=== PATIENT | male | born 1950 | race Caucasian/White ===

== ENCOUNTER 2024-03-29 19:43 | Inpatient (IN) ==
[2024-03-29] MEDS: 0.9 % SODIUM CHLORIDE 1,000 ML IV ONE (20:30)
[2024-03-29 21:08] LABS: Basophils # (Auto) 0.03 K/mcL (0.00-0.30); Basophils % (Auto) 0.3 % (0.0-2.0); Hematocrit 43.6 % (40.1-51.0); Hemoglobin 14.6 g/dL (13.7-17.5); Lymphocytes # (Auto) 1.08 K/mcL (1.50-4.80); Lymphocytes % (Auto) 10.6 % (15.5-49.0); Mean Cell Volume 88.3 fL (80.0-100.0); Mean Corpuscular HGB Conc 33.5 g/dL (31.0-36.0); Monocytes # (Auto) 0.96 K/mcL (0.10-0.90); Monocytes % (Auto) 9.4 % (1.0-12.0); Neutrophils % (Auto) 77.4 % (38.0-78.0); Platelet Count 129 K/mcL (140-440); RBC 4.94 M/mcL (4.63-6.08); Red Cell Distribution Width 12.5 % (11.5-14.5); WBC 10.2 K/mcL (4.5-11.0)
[2024-03-29 21:21] LABS: INR 1.1 (0.9-1.1); Prothrombin Time 14.6 sec (11.9-14.5)
[2024-03-29 21:28] LABS: Thyroid Stimulating Hormone 0.81 uIU/mL (0.27-5.01)
[2024-03-29 21:39] LABS: ALT/SGPT 24 U/L (<40); AST/SGOT 30 U/L (<40); Albumin 3.6 gm/dL (3.2-5.2); Albumin/Globulin Ratio 1.1 (1.0-2.3); Alkaline Phosphatase 61 U/L (39-117); Bilirubin,Total 1.3 mg/dL (0.1-1.0); Blood Urea Nitrogen 61 mg/dL (8-23); Calcium 8.3 mg/dL (8.6-10.4); Carbon Dioxide 21 mmol/L (22-30); Chloride 89 mmol/L (96-108); Globulin 3.2 gm/dL (2.2-3.7); Glomerular Filtration Rate 34; Glucose 222 mg/dL (70-105); Potassium 3.8 mmol/L (3.3-5.1); Sodium 126 mmol/L (133-145)
[2024-03-29 22:10] LABS: Free T4 (Free Thyroxine) 1.89 ng/dL (0.93-1.70)
[2024-03-29] MEDS ORDERED: ONDANSETRON 4 MG/2 ML VIAL IV PRN (23:10)
[2024-03-29] MEDS ORDERED: IPRATROPIUM/ALBUTEROL 3 ML AMPUL.NEB NEB PRN (23:10)
[2024-03-29] MEDS ORDERED: DEXTROSE 50% 50 ML VIAL IV PRN (23:10)
[2024-03-29] MEDS ORDERED: LACTULOSE 20 GM/30 ML ORAL.SOL PO PRN (23:10)
[2024-03-29] MEDS ORDERED: DEXTROSE 31 GM ORAL.SUSP PO PRN (23:10)
[2024-03-29] MEDS: 0.9 % SODIUM CHLORIDE 1,000 ML IV SCH (23:30)
[2024-03-29] MEDS: 0.9 % SODIUM CHLORIDE 10 ML SYRINGE IV SCH (23:31)
[2024-03-30 06:25] LABS: Basophils # (Auto) 0.02 K/mcL (0.00-0.30); Basophils % (Auto) 0.2 % (0.0-2.0); Eosinophils # (Auto) 0.28 K/mcL (0.00-0.70); Eosinophils % (Auto) 2.9 % (0.0-7.0); Hematocrit 41.5 % (40.1-51.0); Hemoglobin 13.6 g/dL (13.7-17.5); Lymphocytes # (Auto) 1.72 K/mcL (1.50-4.80); Mean Cell Volume 89.6 fL (80.0-100.0); Mean Corpuscular HGB Conc 32.8 g/dL (31.0-36.0); Mean Platelet Volume 12.3 fL (8.8-12.5); Monocytes # (Auto) 0.84 K/mcL (0.10-0.90); Monocytes % (Auto) 8.8 % (1.0-12.0); Neutrophils % (Auto) 69.8 % (38.0-78.0); Platelet Count 108 K/mcL (140-440); RBC 4.63 M/mcL (4.63-6.08); Red Cell Distribution Width 12.6 % (11.5-14.5); WBC 9.5 K/mcL (4.5-11.0)
[2024-03-30 06:40] LABS: Phosphorous 4.7 mg/dL (2.5-4.5)
[2024-03-30 06:43] LABS: INR 1.1 (0.9-1.1); Prothrombin Time 14.6 sec (11.9-14.5)
[2024-03-30] MEDS: LIDOCAINE 2% URO-JET 10 ML JEL.PF.APP UR ONE (06:45)
[2024-03-30 06:51] LABS: Appearance,Urine Clear (Clear); Bilirubin,Urine Negative (Negative); Color,Urine Yellow; Culture Indicated,Urine No; Glucose,Urine (UA) Negative (Negative); Ketones,Urine Negative (Negative); Leukocyte Esterase,Urine Negative /uL (Negative); Nitrate,Urine Negative (Negative); PH,Urine 5.5 (5.0-9.0); Protein,Urine Negative (Negative); Specific Gravity,Urine <= 1.005 (1.000-1.035); Urine Blood Trace-intact ery/mcL (Negative); Urine RBC 0 /hpf (0-3); Urine Squamous Epithelial Cell 0 /hpf (0-4); Urine WBC 0 /hpf (0-4); Urobilinogen,Urine Normal
[2024-03-30 06:52] LABS: ALT/SGPT 22 U/L (<40); AST/SGOT 23 U/L (<40); Albumin 3.2 gm/dL (3.2-5.2); Albumin/Globulin Ratio 1.2 (1.0-2.3); Alkaline Phosphatase 53 U/L (39-117); Bilirubin,Total 1.1 mg/dL (0.1-1.0); Blood Urea Nitrogen 57 mg/dL (8-23); Carbon Dioxide 24 mmol/L (22-30); Chloride 95 mmol/L (96-108); Globulin 2.7 gm/dL (2.2-3.7); Glomerular Filtration Rate 46; Glucose 168 mg/dL (70-105); Sodium 129 mmol/L (133-145)
[2024-03-30] MEDS: INSULIN LISPRO 1 UNIT/0.01 ML UNIT SQ SCH (07:56)
[2024-03-30] MEDS ORDERED: NITROGLYCERIN 0.4 MG TAB.SUBL SL PRN (08:55)
[2024-03-30] MEDS ORDERED: traZODone HCL 50 MG TABLET PO PRN (08:55)
[2024-03-30] MEDS: MAGNESIUM OXIDE 400 MG TABLET PO SCH (09:13)
[2024-03-30] MEDS: CLOPIDOGREL 75 MG TABLET PO SCH (09:13)
[2024-03-30] MEDS: DOCUSATE SODIUM 100 MG CAPSULE PO SCH (09:13)
[2024-03-30] MEDS: WARFARIN 3 MG TABLET PO SCH (13:48)
[2024-03-30] MEDS: ACETAMINOPHEN 325 MG TABLET PO PRN (20:34)
[2024-03-31 06:29] LABS: ALT/SGPT 20 U/L (<40); AST/SGOT 21 U/L (<40); Albumin 2.9 gm/dL (3.2-5.2); Albumin/Globulin Ratio 1.2 (1.0-2.3); Alkaline Phosphatase 62 U/L (39-117); Bilirubin,Total 0.6 mg/dL (0.1-1.0); Blood Urea Nitrogen 54 mg/dL (8-23); Calcium 7.7 mg/dL (8.6-10.4); Carbon Dioxide 24 mmol/L (22-30); Chloride 101 mmol/L (96-108); Globulin 2.4 gm/dL (2.2-3.7); Glomerular Filtration Rate 54; Glucose 145 mg/dL (70-105); Phosphorous 3.5 mg/dL (2.5-4.5); Potassium 3.8 mmol/L (3.3-5.1); Sodium 132 mmol/L (133-145)
[2024-03-31 06:33] LABS: INR 1.1 (0.9-1.1); Prothrombin Time 14.1 sec (11.9-14.5)
[2024-03-31 06:38] LABS: Basophils # (Auto) 0.02 K/mcL (0.00-0.30); Basophils % (Auto) 0.3 % (0.0-2.0); Eosinophils # (Auto) 0.35 K/mcL (0.00-0.70); Eosinophils % (Auto) 4.8 % (0.0-7.0); Hematocrit 35.3 % (40.1-51.0); Hemoglobin 11.6 g/dL (13.7-17.5); Lymphocytes # (Auto) 1.46 K/mcL (1.50-4.80); Lymphocytes % (Auto) 19.9 % (15.5-49.0); Mean Corpuscular HGB Conc 32.9 g/dL (31.0-36.0); Mean Platelet Volume 12.8 fL (8.8-12.5); Monocytes # (Auto) 0.56 K/mcL (0.10-0.90); Monocytes % (Auto) 7.6 % (1.0-12.0); Neutrophils % (Auto) 67.1 % (38.0-78.0); Platelet Count 90 K/mcL (140-440); RBC 3.88 M/mcL (4.63-6.08); Red Cell Distribution Width 12.8 % (11.5-14.5); WBC 7.3 K/mcL (4.5-11.0)
[2024-03-31] MEDS: ATORVASTATIN 40 MG TABLET PO SCH (09:21)
[2024-03-31] MEDS: INSULIN GLARGINE, HUMAN 1 UNIT/0.01 ML SQ SCH (09:22)
[2024-03-31] MEDS ORDERED: PANTOPRAZOLE 40 MG VIAL IV SCH (12:55)
[2024-03-31] MEDS: WARFARIN 5 MG TABLET PO SCH (15:53)
[2024-03-31 20:44] LABS: Estimated Average Glucose(eAG) 148 mg/dL; Hemoglobin A1C 6.8 % Hgb (4.0-6.0)
[2024-04-01 06:48] LABS: ALT/SGPT 19 U/L (<40); AST/SGOT 18 U/L (<40); Albumin 2.8 gm/dL (3.2-5.2); Albumin/Globulin Ratio 1.3 (1.0-2.3); Alkaline Phosphatase 61 U/L (39-117); Bilirubin,Direct < 0.2 mg/dL (0-0.3); Bilirubin,Total 0.4 mg/dL (0.1-1.0); Blood Urea Nitrogen 39 mg/dL (8-23); Calcium 7.4 mg/dL (8.6-10.4); Carbon Dioxide 23 mmol/L (22-30); Chloride 105 mmol/L (96-108); Globulin 2.2 gm/dL (2.2-3.7); Glomerular Filtration Rate 66; Glucose 152 mg/dL (70-105); Lactate Dehydrogenase 115 U/L (135-225); Phosphorous 2.8 mg/dL (2.5-4.5); Potassium 3.9 mmol/L (3.3-5.1); Sodium 135 mmol/L (133-145); Triglycerides 87 mg/dL (<150); Uric Acid 5.7 mg/dL (2.5-8.0)
[2024-04-01 07:14] LABS: INR 1.1 (0.9-1.1); Prothrombin Time 14.2 sec (11.9-14.5)
[2024-04-01] MEDS: ENOXAPARIN 80 MG/0.8 ML SYRINGE SQ SCH (08:29)
[2024-04-01] MEDS: TAMSULOSIN 0.4 MG CAPSULE PO SCH ×2 (08:29→20:25)
[2024-04-01] MEDS: WARFARIN 5 MG TABLET PO SCH (14:24)
[2024-04-01] MEDS: SENNOSIDES 1 TABLET PO PRN (19:15)
[2024-04-02 06:52] LABS: INR 1.3 (0.9-1.1); Prothrombin Time 16.1 sec (11.9-14.5)
[2024-04-02 07:17] LABS: ALT/SGPT 20 U/L (<40); AST/SGOT 21 U/L (<40); Albumin 2.6 gm/dL (3.2-5.2); Albumin/Globulin Ratio 1.2 (1.0-2.3); Alkaline Phosphatase 55 U/L (39-117); Bilirubin,Direct < 0.2 mg/dL (0-0.3); Bilirubin,Total 0.4 mg/dL (0.1-1.0); Blood Urea Nitrogen 28 mg/dL (8-23); Calcium 7.5 mg/dL (8.6-10.4); Carbon Dioxide 22 mmol/L (22-30); Chloride 106 mmol/L (96-108); Globulin 2.2 gm/dL (2.2-3.7); Glomerular Filtration Rate 74; Glucose 102 mg/dL (70-105); Lactate Dehydrogenase 123 U/L (135-225); Phosphorous 2.4 mg/dL (2.5-4.5); Potassium 3.9 mmol/L (3.3-5.1); Sodium 135 mmol/L (133-145); Triglycerides 67 mg/dL (<150); Uric Acid 5.2 mg/dL (2.5-8.0)
[2024-04-02] MEDS: ENOXAPARIN 80 MG/0.8 ML SYRINGE SQ ONE (08:43)
== END 2024-04-02 13:05 | DRG 640 ==
LOC: ED 19:43 → ICU 23:08
PROVIDERS: ADMIT Internal Medicine; ATTEND Internal Medicine